=== PATIENT | female | born 1995 | race Caucasian/White ===

== ENCOUNTER 2017-12-25 13:36 | Emergency (ER) | payer OTHER, BC | END 2017-12-25 16:15 | disposition home or self-care (01) | LOC: M ED 13:36 | DX: S16.1XXA Strain of muscle, fascia and tendon at neck level, initial encounter (principal); V87.9XXA Person injured in other specified (collision)(noncollision) transport accidents involving nonmotor vehicle (traffic), initial encounter; Y92.89 Other specified places as the place of occurrence of the external cause; R55 Syncope and collapse | CPT/HCPCS: 72052 ==

== ENCOUNTER → 2020-05-01 | Outpatient (CLI) | payer OTHER, BC ==
[~2020-05-01] MED LIST: NAPR-885 PO; NEXP1IMP SC; ROBA750T4 PO; ZOLO50TA PO
== END ==
LOC: M LABSMTC 09:40
PROVIDERS: ATTEND Anesthesiology
DX: Z11.59 Encounter for screening for other viral diseases (principal); Z03.89 Encounter for observation for other suspected diseases and conditions ruled out
CPT/HCPCS: C9803; U0003

== ENCOUNTER 2020-05-04 13:45 | Day surgery (SDC) | payer BC ==
[~2020-05-04] VITALS: Ht 177.8 cm; Wt 71.7 kg
[~2020-05-04 13:45] MED LIST changes: +NS 1,000 ML IV ONE
[2020-05-04] MEDS ORDERED: fentaNYL 100 MCG/2 ML INJECTION (J3010) As Ordered ONE (14:50)
[2020-05-04] MEDS ORDERED: propofoL 200 MG/20 ML VIAL As Ordered ONE (15:01)
[2020-05-04] MEDS ORDERED: LIDOCAINE 2% 100MG/5ML SDV (FOR ANES.) As Ordered ONE (15:02)
--- NOTE | 2020-05-04 15:05 | ROOR ---
Patient Name: Esha Guevara Procedure Date: 05/04/2020 2:51 PM Date of : 1995 Age: 24 Room: [facility] Gender: Female Note Status: Finalized Procedure: Upper GI endoscopy Indications: Exclusion of celiac disease, Abdominal bloating, Diarrhea Providers: Cj BETANCOURT MD Referring MD: Mary Kate Aviles Requesting Provider: Medicines: Monitored Anesthesia Care Complications: No immediate complications. Procedure: Pre-Anesthesia Assessment: - The heart rate, respiratory rate, oxygen saturations, blood pressure, adequacy of pulmonary ventilation, and response to care were monitored throughout the procedure. The Endoscope was introduced through the mouth, and advanced to the third part of duodenum. The upper GI endoscopy was accomplished without difficulty. The patient tolerated the procedure well. Findings: The esophagus was normal. The stomach was normal. The examined duodenum was normal. Biopsies for histology were taken with a cold forceps in the second portion of the duodenum and in the third portion of the duodenum for evaluation of celiac disease. Impression: - Normal esophagus. - Normal stomach. - Normal examined duodenum. - Biopsies were taken with a cold forceps for evaluation of celiac disease. Recommendation: - Observe patient's clinical course. - Continue present medications. - Telephone endoscopist for pathology results in 2 weeks. Cj Betancourt MD Cj BETANCOURT MD 05/04/2020 3:05:25 PM Electronically signed by Cj BETANCOURT MD Number of Addenda: 0 Note Initiated On: 05/04/2020 2:51 PM Estimated Blood Loss: Estimated blood loss: none.
[2020-05-04] MEDS ORDERED: GLYCOPYRROLATE INJ 0.2 MG/ML 2 ML VIAL As Ordered ONE (15:07)
--- NOTE | 2020-05-04 15:25 | ROOR ---
Patient Name: Esha Guevara Procedure Date: 05/04/2020 2:52 PM Date of : 1995 Age: 24 Room: [facility] Gender: Female Note Status: Finalized Procedure: Colonoscopy Indications: Family history of IBD, Change in bowel habits, Diarrhea Providers: Cj BETANCOURT MD Referring MD: Mary Kate Aviles Requesting Provider: Medicines: Monitored Anesthesia Care Complications: No immediate complications. Procedure: Pre-Anesthesia Assessment: - The heart rate, respiratory rate, oxygen saturations, blood pressure, adequacy of pulmonary ventilation, and response to care were monitored throughout the procedure. The Colonoscope was introduced through the anus and advanced to 10 cm into the ileum. The colonoscopy was performed without difficulty. The patient tolerated the procedure well. The quality of the bowel preparation was good. Findings: The perianal and digital rectal examinations were normal. The terminal ileum appeared normal. A diffuse area of mildly erythematous mucosa was found in the sigmoid colon. This was biopsied with a cold forceps for histology. The exam was otherwise normal throughout the examined colon. Biopsies for histology were taken with a cold forceps from the entire colon for evaluation of microscopic colitis. Impression: - The terminal ileum is normal. - The colon is normal except for minimal erythematous mucosa in the sigmoid colon. Biopsied. - Biopsies were taken with a cold forceps from the entire colon for evaluation of microscopic colitis. - (Irritable Bowel Syndrome/IBS suspected.) Recommendation: - Telephone endoscopist for pathology results in 2 weeks. - Use Bentyl (dicyclomine) 10 - 20 mg every 6-8 hrs as needed. Cj Betancourt MD Cj BETANCOURT MD 05/04/2020 3:25:06 PM Electronically signed by Cj BETANCOURT MD Number of Addenda: 0 Note Initiated On: 05/04/2020 2:52 PM Estimated Blood Loss: Estimated blood loss: none.
[2020-05-04 16:10] VITALS: BP 127/88
== END 2020-05-04 16:09 | disposition home or self-care (01) ==
LOC: M OPP 13:45
PROVIDERS: ATTEND Internal Medicine Gastroenterology
DX: R10.9 Unspecified abdominal pain (principal); R19.7 Diarrhea, unspecified; K63.89 Other specified diseases of intestine; R14.0 Abdominal distension (gaseous)
CPT/HCPCS: 43239; 45380; 88305; J3010

== ENCOUNTER → 2024-01-10 | Outpatient (CLI) | payer BC ==
[~2024-01-10] MED LIST changes: +ETON68IM SC; -NEXP1IMP SC; -NS 1,000 ML IV ONE
== END ==
LOC: M RAD 13:51
PROVIDERS: ATTEND Nurse Practitioner Family
DX: M79.661 Pain in right lower leg (principal); I82.411 Acute embolism and thrombosis of right femoral vein

== ENCOUNTER → 2024-07-12 | Outpatient (REF) | payer OTHER ==
[~2024-07-12] MED LIST changes: +ELIQ5TAB; +JOBSMIS MC; +SERTRALINE; +SPIR50TA4
== END ==
LOC: M PLALAB 14:42
PROVIDERS: ATTEND Advanced Practice Midwife
DX: Z53.20 Procedure and treatment not carried out because of patient's decision for unspecified reasons (principal)

== ENCOUNTER → 2024-07-15 | Outpatient (CLI) | payer OTHER ==
[2024-07-15 17:58] LABS: HEMATOCRIT 35.9 % (36.0-47.0); HEMOGLOBIN 12.2 g/dl (12.0-15.5); MEAN CORPUSCULAR HEMOGLOBIN 31.3 pg (27.0-33.0); MEAN CORPUSCULAR VOLUME 92.1 fl (80.0-96.0); PLATELET COUNT, AUTOMATED 233 10^3/uL (150-450); WHITE BLOOD COUNT 8.2 10^3/uL (4.0-10.0)
[2024-07-15 18:56] LABS: HIV 1&2 SCREEN NEGATIVE (NEGATIVE)
[2024-07-15 19:05] LABS: HEPATITIS C VIRUS ABY INDEX < 0.02 INDEX (<0.8)
[2024-07-15 19:43] LABS: GC DNA AMPLIFICATION NEGATIVE (NEGATIVE)
== END ==
LOC: M PLALAB 15:33
PROVIDERS: ATTEND Advanced Practice Midwife
DX: Z34.81 Encounter for supervision of other normal pregnancy, first trimester (principal)

== ENCOUNTER → 2024-09-13 | Outpatient (CLI) | payer OTHER | LOC: M WHC 14:05 | PROVIDERS: ATTEND Obstetrics & Gynecology | DX: O32.1XX0 Maternal care for breech presentation, not applicable or unspecified (principal); Z3A.19 19 weeks gestation of pregnancy ==

== ENCOUNTER → 2024-10-22 | Outpatient (CLI) | payer OTHER ==
[2024-10-22 18:07] LABS: HEMATOCRIT 36.7 % (36.0-47.0); HEMOGLOBIN 12.3 g/dl (12.0-15.5); MEAN CORPUSCULAR HEMOGLOBIN 31.2 pg (27.0-33.0); MEAN CORPUSCULAR HGB CONC 33.5 g/dl (32.0-36.5); MEAN CORPUSCULAR VOLUME 93.1 fl (80.0-96.0); PLATELET COUNT, AUTOMATED 212 10^3/uL (150-450); RED BLOOD COUNT 3.94 10^6/uL (4.00-5.40); WHITE BLOOD COUNT 9.9 10^3/uL (4.0-10.0)
[2024-10-22 18:10] LABS: GLUCOSE CHALLENGE TEST 1 HOUR 130 MG/DL (LESS THAN 140)
[2024-10-22 18:45] LABS: HIV 1&2 SCREEN NEGATIVE (NEGATIVE)
[2024-10-22 18:53] LABS: HEPATITIS C VIRUS ABY INDEX < 0.02 INDEX (<0.8)
[2024-10-22 21:01] LABS: GC DNA AMPLIFICATION NEGATIVE (NEGATIVE)
== END ==
LOC: M PLALAB 13:41
PROVIDERS: ATTEND Nurse Practitioner Family
DX: Z34.92 Encounter for supervision of normal pregnancy, unspecified, second trimester (principal)

== ENCOUNTER 2024-11-21 07:11 | Emergency (ER) | payer OTHER ==
[~2024-11-21] VITALS: Ht 177.8 cm; Wt 90.9 kg
[2024-11-21 07:15] VITALS: BP 162/74; TEMP 97.4; O2SAT 100
[2024-11-21] MEDS ORDERED: ENOX40IN3 (07:21)
[2024-11-21] MEDS ORDERED: BUSP5TA (07:21)
[2024-11-21] MEDS ORDERED: PRENTAB29 (07:21)
== END 2024-11-21 08:04 | disposition admitted as inpatient to this hospital (09) ==
LOC: M ED 07:11
DX: Z53.21 Procedure and treatment not carried out due to patient leaving prior to being seen by health care provider (principal)

== ENCOUNTER 2024-11-21 08:08 | Outpatient (CLI) | payer OTHER ==
[~2024-11-21] VITALS: Ht 177.8 cm; Wt 90.9 kg
[~2024-11-21 08:08] MED LIST changes: +BUSP5TA; +ENOX40IN3; +PRENTAB29
[2024-11-21 08:24] VITALS: BP 141/91
[2024-11-21 08:39] VITALS: BP 143/88
[2024-11-21 08:55] VITALS: BP 133/76
== END 2024-11-21 09:52 | disposition home or self-care (01) ==
LOC: M LDO 08:08
PROVIDERS: ATTEND Specialist
DX: Z04.1 Encounter for examination and observation following transport accident (principal); O26.893 Other specified pregnancy related conditions, third trimester; R03.0 Elevated blood-pressure reading, without diagnosis of hypertension; Z3A.29 29 weeks gestation of pregnancy; Y92.9 Unspecified place or not applicable; Y93.9 Activity, unspecified; Y99.9 Unspecified external cause status
CPT/HCPCS: 59025; G0463

== ENCOUNTER → 2025-01-08 | Outpatient (REF) | payer OTHER | LOC: M SFHCWAGY 17:11 | PROVIDERS: ATTEND Obstetrics & Gynecology | DX: Z36.85 Encounter for antenatal screening for Streptococcus B (principal); Z3A.36 36 weeks gestation of pregnancy ==

== ENCOUNTER → 2025-01-10 | Outpatient (CLI) | payer OTHER | LOC: M WHC 07:04 | PROVIDERS: ATTEND Obstetrics & Gynecology | DX: O26.843 Uterine size-date discrepancy, third trimester (principal); Z3A.36 36 weeks gestation of pregnancy ==

== ENCOUNTER 2025-01-27 08:40 | Inpatient (IN) | payer OTHER ==
[2025-01-27] VITALS (31 sets, daily range): BP systolic 102–179; BP diastolic 50–112
[~2025-01-27] VITALS: Ht 177.8 cm; Wt 92.7 kg
[2025-01-27] MEDS ORDERED: BUSP5TA PO (09:09)
[2025-01-27] MEDS ORDERED: FAMO20TA PO (09:09)
[2025-01-27] MEDS ORDERED: [UNRECOGNIZED DRUG - CODE] SC (09:23)
[2025-01-27] MEDS ORDERED: HOME MED LIST COMPLETE! XX SCH (09:25)
[2025-01-27 10:27] LABS: HEMATOCRIT 36.4 % (36.0-47.0); HEMOGLOBIN 12.5 g/dl (12.0-15.5); MEAN CORPUSCULAR HEMOGLOBIN 30.9 pg (27.0-33.0); MEAN CORPUSCULAR HGB CONC 34.3 g/dl (32.0-36.5); MEAN CORPUSCULAR VOLUME 90.1 fl (80.0-96.0); PLATELET COUNT, AUTOMATED 183 10^3/uL (150-450); RED BLOOD COUNT 4.04 10^6/uL (4.00-5.40); WHITE BLOOD COUNT 8.6 10^3/uL (4.0-10.0)
[2025-01-27] MEDS ORDERED: TRANEXAMIC ACID INJection 1,000 MG in NS 100 ML IV PRN (10:30)
[2025-01-27] MEDS ORDERED: CARBOPROST TROMETHAMINE 250 MCG/ML AMP IM PRN (10:30)
[2025-01-27] MEDS ORDERED: LIDOCAINE 1% MDV 20ML VIAL INFIL PRN (10:30)
[2025-01-27] MEDS ORDERED: OXYTOCIN INJ 10UNITS/ML 1ML VIAL IM PRN (10:30)
[2025-01-27 10:47] LABS: CREATININE,RANDOM URINE 19.2 MG/DL
[2025-01-27 10:56] LABS: TOTAL PROTEIN,RANDOM URINE < 6.0 MG/DL (0.0-14.0)
[2025-01-27 11:00] LABS: LDH LACTATE DEHYDROGENASE 231 U/L (120-246)
[2025-01-27 11:01] LABS: ALT/SGPT 16 U/L (7.0-40); AST/SGOT 25 U/L (<34); BILIRUBIN,TOTAL 0.4 MG/DL (0.3-1.2); CREATININE FOR GFR 0.72 MG/DL (0.55-1.30); GLOMERULAR FILTRATION RATE > 60.0 (>60)
[2025-01-27] MEDS: miSOPROStol 50MCG 1/2 TABLET PO SCH (11:01)
[2025-01-27] MEDS: FAMOTIDINE 20 MG TAB PO ONE (11:01)
[2025-01-27 11:34] LABS: HIV 1&2 SCREEN NEGATIVE (NEGATIVE)
[2025-01-27 11:41] LABS: HEPATITIS C VIRUS ABY INDEX 0.02 INDEX (<0.8)
[2025-01-27] MEDS ORDERED: ePHEDrine SULFATE 25 MG/5 ML(5MG/ML) SYRINGE IVP PRN (20:25)
[2025-01-27] MEDS ORDERED: EPIDURAL/PCA KEYS XX PRN (20:25)
[2025-01-27] MEDS ORDERED: LR 500 ML IV PRN (20:25)
[2025-01-27] MEDS ORDERED: NALOXONE INJ 0.4MG/1ML VIAL IV PRN (20:25)
[2025-01-27] MEDS ORDERED: diphenhydrAMINE 50MG/ML VIAL IV PRN (20:25)
[2025-01-27] MEDS: FENTANYL/ROPIVACAINE/NACL BAG 100 ML EPIDURAL SCH (21:06)
[2025-01-27] MEDS: ONDANSETRON 4MG 2ML VIAL IV PRN (21:14)
[2025-01-27] MEDS ORDERED: LR 1,000 ML IV SCH (22:20)
[2025-01-27] MEDS: OXYTOCIN DRIP 30 UNITS in IV 1 EA IV SCH (22:44)
[2025-01-28] VITALS (8 sets, daily range): BP systolic 130–165; BP diastolic 69–92; O2SAT 96–97
[2025-01-28] MEDS: LABETALOL 100MG/20ML VIAL IV STA (01:49)
[2025-01-28] MEDS: OXYTOCIN DRIP 30 UNITS in IV 1 EA IV PRN (05:11)
[2025-01-28] MEDS: AMPICILLIN SOD/SULBACTAM SOD 3 GM in DEXTROSE 5% (D5W) MINI-BAG PLU 100 ML IV ONE (05:33)
[2025-01-28] MEDS ORDERED: IBUPROFEN 600MG TAB PO PRN (08:10)
[2025-01-28] MEDS ORDERED: METHYLERGONOVINE MALEATE 0.2 MG TAB PO PRN (08:10)
[2025-01-28] MEDS ORDERED: RHOGAM 300MCG (1500IU) INJ IM SCH (08:10)
[2025-01-28] MEDS ORDERED: ACETAMINOPHEN 500 MG TAB PO PRN (08:10)
[2025-01-28] MEDS ORDERED: ACETAMINOPHEN 325 MG TAB PO PRN (08:10)
[2025-01-28] MEDS: LACTATED RINGER'S 1000 ML IV STA (08:12)
[2025-01-28] MEDS: IBUPROFEN 800 MG TAB PO PRN (08:23)
[2025-01-28] MEDS: PRENATAL VITAMINS CHEWABLE TABLET PO SCH (09:00)
[2025-01-28] MEDS: ENOXAPARIN 40MG/0.4ML SYRINGE (J1650 PER 10MG) SC SCH (15:48)
[2025-01-28] MEDS: DIBUCAINE 1% OINTMENT 30GM TOP PRN (21:57)
[2025-01-29 06:00] VITALS: BP 138/82; O2SAT 100
[2025-01-29] MEDS: DOCUSATE SODIUM 100MG CAPSULE PO PRN (15:54)
[2025-01-30] MEDS ORDERED: MEASLES,MUMPS,RUBELLA VACCINE INJ (MMR-II) SC.IMMUN ONE (09:00)
== END 2025-01-29 16:50 | disposition home or self-care (01) | DRG 807 ==
LOC: M LDI 08:40 → M OBS 01-28 08:38
PROVIDERS: ADMIT Advanced Practice Midwife; ATTEND Advanced Practice Midwife
PROC: 3E0P7GC Introduction of Other Therapeutic Substance into Female Reproductive, Via Natural or Artificial Opening (ICD-10-PCS; 2025-01-27)
PROC: 10D17Z9 Manual Extraction of Products of Conception, Retained, Via Natural or Artificial Opening (ICD-10-PCS; principal; 2025-01-28)
PROC: 10E0XZZ Delivery of Products of Conception, External Approach (ICD-10-PCS; 2025-01-28)
DX: O13.4 Gestational [pregnancy-induced] hypertension without significant proteinuria, complicating childbirth (principal); Z37.0 Single live birth; Z3A.39 39 weeks gestation of pregnancy; Z86.718 Personal history of other venous thrombosis and embolism; Z79.01 Long term (current) use of anticoagulants; O73.0 Retained placenta without hemorrhage

== ENCOUNTER → 2025-05-28 | Outpatient (REF) | payer OTHER ==
[~2025-05-28] MED LIST changes: +BUSP5TA PO; +FAMO20TA PO; +[UNRECOGNIZED DRUG - CODE] SC
[2025-05-30 14:22] LABS: HPV APTIMA Not Detected (Not Detected)
== END ==
LOC: M PLALAB 10:50
PROVIDERS: ATTEND Advanced Practice Midwife
DX: Z12.4 Encounter for screening for malignant neoplasm of cervix (principal); R87.610 Atypical squamous cells of undetermined significance on cytologic smear of cervix (ASC-US)
CPT/HCPCS: 87624; G0123

== ENCOUNTER → 2025-09-17 | Outpatient (REF) | payer OTHER | LOC: M SFHCDERM 15:47 | PROVIDERS: ATTEND Dermatology | DX: L91.0 Hypertrophic scar (principal) ==